=== PATIENT | female | born 1945 | race Caucasian/White ===

== ENCOUNTER 2017-08-12 15:37 | Emergency (ER) | payer SELFPAY, BC, MEDICARE | END 2017-08-12 17:39 | disposition left against medical advice (07) | LOC: E/R 15:37 | DX: Z53.21 Procedure and treatment not carried out due to patient leaving prior to being seen by health care provider (principal) ==

== ENCOUNTER 2019-03-24 20:39 | Inpatient (IN) | payer BC, MEDICARE ==
[2019-03-24 21:13] LABS: ADD MAN DIFF? NO
[2019-03-24 21:19] LABS: WHITE BLOOD COUNT 9.3 10^3/ul (4.8-10.8)
[2019-03-24 21:19] LABS: BASOPHILS % 0.4 % (0.0-2.0); EOSINOPHILS # 0.2 10^3/ul (0.0-0.5); EOSINOPHILS % 1.7 % (0.0-7.0); HEMATOCRIT 43.1 % (37.0-47.0); HEMOGLOBIN 14.1 g/dl (12.0-16.0); LYMPHOCYTES # 1.7 10^3/ul (0.8-2.9); MEAN CORPUSCULAR HEMOGLOBIN 31.8 pg (29.0-33.0); MEAN CORPUSCULAR HGB CONC 32.7 g/dl (32.0-37.0); MEAN CORPUSCULAR VOLUME 97.3 fl (82.0-101.0); MEAN PLATELET VOLUME 9.5 fl (7.4-10.4); MONOCYTE # 0.5 10^3/ul (0.3-0.9); MONOCYTES % 4.8 % (0.0-11.0); NEUTROPHIL # 6.9 10^3/ul (1.6-7.5); NEUTROPHILS % 74.7 % (39.0-77.0); PLATELET COUNT 223 10^3/UL (140-415); RED BLOOD COUNT 4.43 10^6/ul (4.20-5.40); RED CELL DISTRIBUTION WIDTH 15.5 % (11.5-14.5)
[2019-03-24] MEDS: SOD CHLORIDE 0.9% 500 ML IV (21:19)
[2019-03-24] MEDS: KETOROLAC 15 MG INJ IV (21:19)
[2019-03-24 21:38] LABS: INR 0.93; PROTIME 12.6 Sec (11.9-14.9)
[2019-03-24 21:39] LABS: PARTIAL THROMBOPLASTIN TIME 27.7 Sec (23.0-35.0)
[2019-03-24] MEDS: MAGNESIUM SULFATE 2 GM/50 ML 50 ML IVPB (21:40)
[2019-03-24 21:46] LABS: ALANINE AMINOTRANSFERASE 56 IU/L (13-69); ALBUMIN 4.6 g/dl (3.3-4.9); ALBUMIN/GLOBULIN RATIO 1.43; ALKALINE PHOSPHATASE 81 IU/L (42-121); ANION GAP 12 (5-13); ASPARTATE AMINO TRANSFERASE 41 IU/L (15-46); BILIRUBIN,INDIRECT 0.5 mg/dl (0-1.1); BILIRUBIN,TOTAL 0.5 mg/dl (0.2-1.3); BLOOD UREA NITROGEN 14 mg/dl (7-20); CALCIUM 10.1 mg/dl (8.4-10.2); CARBON DIOXIDE 24 mmol/L (21-31); CHLORIDE 105 mmol/L (97-110); CREATININE 0.84 mg/dl (0.44-1.00); GLUCOSE 147 mg/dl (70-220); LIPASE 121 U/L (23-300); POTASSIUM 3.4 mmol/L (3.5-5.1); SODIUM 141 mmol/L (135-144); TOTAL PROTEIN 7.8 g/dl (6.1-8.1)
[2019-03-24 21:57] LABS: B-TYPE NATRIURETIC PEPTIDE 1570 PG/ML (0-125); TROPONIN-I < 0.012 ng/ml (0.000-0.120)
[2019-03-24] MEDS: FUROSEMIDE 40 MG INJ IV (22:26)
[2019-03-24] MEDS: ASPIRIN 81 MG TAB PO (22:26)
[2019-03-24] MEDS: NITROGLYCERIN (SL) 0.4 MG TAB SL (22:26)
[2019-03-24] MEDS: ENALAPRILAT 1.25 MG INJ IV (22:26)
[2019-03-24] MEDS ORDERED: ACETAMINOPHEN 325 MG TAB PO (22:30)
[2019-03-24] MEDS ORDERED: NITROGLYCERIN (SL) 0.4 MG TAB SL (22:30)
[2019-03-24] MEDS ORDERED: NACL 0.9% 3 ML SYG IV (22:30)
[2019-03-24] MEDS ORDERED: BISACODYL (EC) 5 MG TAB PO (22:30)
[2019-03-24] MEDS ORDERED: ONDANSETRON 4 MG TAB PO (22:30)
[2019-03-24] MEDS ORDERED: DOCUSATE SODIUM 100 MG CAP PO (22:30)
[2019-03-24] MEDS: POTASSIUM CHLORIDE (SR) 20 MEQ TAB PO (22:40)
[2019-03-24] MEDS: HEPARIN 5,000 UNIT/1 ML VIAL SC (22:42)
[2019-03-24] MEDS: ZOLPIDEM 5 MG TAB PO (23:45)
[2019-03-25 00:19] LABS: ADD UMIC YES; UR ASCORBIC ACID NEGATIVE (NEGATIVE); UR BACTERIA FEW /HPF (NONE SEEN); UR BILIRUBIN (Dip) NEGATIVE (NEGATIVE); UR BLOOD (Dip) NEGATIVE (NEGATIVE); UR CLARITY SLIGHTLY CLOUDY (CLEAR); UR COLOR YELLOW (YELLOW); UR GLUCOSE (Dip) NEGATIVE (NEGATIVE); UR KETONES (Dip) NEGATIVE (NEGATIVE); UR LEUKOCYTE ESTERASE (Dip) 1+ Leu/ul (NEGATIVE); UR MUCUS FEW /HPF (NONE SEEN); UR NITRITE (Dip) NEGATIVE (NEGATIVE); UR RBC 3 /HPF (0-5); UR SQUAMOUS EPITHELIAL CELL FEW /HPF (FEW); UR TOTAL PROTEIN (Dip) NEGATIVE (NEGATIVE); UR UROBILINOGEN (Dip) NEGATIVE (NEGATIVE); UR WBC 22 /HPF (0-5)
[2019-03-25] MEDS: HYDROCODONE/APAP (5/325) TAB PO ×3 (03:41→13:42)
[2019-03-25] MEDS: HEPARIN 5,000 UNIT/1 ML VIAL SC ×2 (05:33→13:47)
[2019-03-25 07:24] LABS: ADD MAN DIFF? NO
[2019-03-25 07:27] LABS: WHITE BLOOD COUNT 7.6 10^3/ul (4.8-10.8)
[2019-03-25 07:27] LABS: BASOPHILS % 0.5 % (0.0-2.0); EOSINOPHILS # 0.1 10^3/ul (0.0-0.5); EOSINOPHILS % 1.8 % (0.0-7.0); HEMATOCRIT 43.2 % (37.0-47.0); HEMOGLOBIN 13.9 g/dl (12.0-16.0); LYMPHOCYTES # 2.2 10^3/ul (0.8-2.9); LYMPHOCYTES % 29.1 % (15.0-51.0); MEAN CORPUSCULAR HEMOGLOBIN 31.4 pg (29.0-33.0); MEAN CORPUSCULAR HGB CONC 32.2 g/dl (32.0-37.0); MEAN CORPUSCULAR VOLUME 97.7 fl (82.0-101.0); MEAN PLATELET VOLUME 9.9 fl (7.4-10.4); MONOCYTE # 0.5 10^3/ul (0.3-0.9); MONOCYTES % 6.4 % (0.0-11.0); NEUTROPHIL # 4.7 10^3/ul (1.6-7.5); NEUTROPHILS % 61.8 % (39.0-77.0); PLATELET COUNT 230 10^3/UL (140-415); RED BLOOD COUNT 4.42 10^6/ul (4.20-5.40); RED CELL DISTRIBUTION WIDTH 15.7 % (11.5-14.5)
[2019-03-25 08:01] LABS: ANION GAP 11 (5-13); BLOOD UREA NITROGEN 16 mg/dl (7-20); CALCIUM 9.6 mg/dl (8.4-10.2); CARBON DIOXIDE 26 mmol/L (21-31); CHLORIDE 105 mmol/L (97-110); CHOLESTEROL 173 mg/dl (100-200); GLUCOSE 115 mg/dl (70-220); HDL CHOLESTEROL 43 mg/dl (33-92); LDL CHOLESTEROL,CALCULATED 81 mg/dl; MAGNESIUM 2.1 mg/dl (1.7-2.5); POTASSIUM 3.8 mmol/L (3.5-5.1); SODIUM 142 mmol/L (135-144); TRIGLYCERIDES 244 mg/dl (0-149)
[2019-03-25 08:13] LABS: HEMOGLOBIN A1C 5.6 % (0-5.9)
[2019-03-25] MEDS: METOPROLOL (XL) 50 MG TAB PO (08:15)
[2019-03-25] MEDS: COLCHICINE 0.6 MG CAP PO (08:15)
[2019-03-25] MEDS: ALLOPURINOL 300 MG TAB PO (08:15)
[2019-03-25] MEDS: DULOXETINE 30 MG CAP DR PO (08:15)
[2019-03-25] MEDS: LOSARTAN 50 MG TAB PO (08:16)
[2019-03-25] MEDS: ROPINIROLE 1 MG TAB PO ×2 (08:16→13:42)
[2019-03-25] MEDS: FUROSEMIDE 40 MG INJ IV (08:16)
[2019-03-25] MEDS: FOLIC ACID 1 MG TAB PO (08:16)
[2019-03-25] MEDS: BUPROPION (XL) 150 MG TAB PO (08:31)
[2019-03-25] MEDS: FUROSEMIDE 20 MG INJ IV (14:41)
[2019-03-25] MEDS ORDERED: ATORVASTATIN 10 MG TAB PO (21:00)
[2019-03-26] MEDS ORDERED: FUROSEMIDE 40 MG TAB PO (09:00)
== END 2019-03-25 15:20 | disposition home or self-care (01) | DRG 562 ==
LOC: E/R 20:39 → TEL 22:23
PROC: 0RSJXZZ Reposition Right Shoulder Joint, External Approach (ICD-10-PCS; principal; 2019-03-24)
DX: S43.004A Unspecified dislocation of right shoulder joint, initial encounter (principal); I50.23 Acute on chronic systolic (congestive) heart failure; I11.0 Hypertensive heart disease with heart failure; E78.5 Hyperlipidemia, unspecified; E02 Subclinical iodine-deficiency hypothyroidism; F41.9 Anxiety disorder, unspecified; M1A.9XX0 Chronic gout, unspecified, without tophus (tophi); M19.90 Unspecified osteoarthritis, unspecified site; W18.2XXA Fall in (into) shower or empty bathtub, initial encounter; Y93.89 Activity, other specified; Y92.012 Bathroom of single-family (private) house as the place of occurrence of the external cause; Y99.8 Other external cause status
CPT/HCPCS: 36415; 71045; 73030-RT; 80048; 80053; 80061; 81001; 82306; 82962; 83036; 83690; 83735; 83880; 84443; 84484; 85025; 85610; 85730; 87086; 93005; 93306; 96374; 96375; 97162; 97165; 99285-25